=== PATIENT | female | born 1990 | race Two or more races ===

== ENCOUNTER 2019-10-21 12:04 | Emergency (ER) | payer OTHER ==
[2019-10-21 12:27] VITALS: BP 135/89; PULSE 89; TEMP 98.1; BMI 30.9
[2019-10-21] MEDS ORDERED: diazePAM 5 MG TABLET PO ONE (14:23)
[2019-10-21] MEDS ORDERED: KETOROLAC TROMETHAMINE 60 MG/2 ML VIAL IM ONE (14:23)
--- NOTE | 2019-10-21 14:27 | PDOC ---
History of Present Illness - General Chief Complaint: Back Pain Stated Complaint: LOWER BACK PAIN Time Seen by Provider: 10/21/19 13:42 - History of Present Illness Initial Comments: 10/21/19 14:24 29-year-old female without comorbidities presents for evaluation of lower back pain without radicular or systemic symptoms x1 day. Pain started when she went to bend down to put detergent in a bucket. Past History - Past Medical History Allergies/Adverse Reactions: Allergies Allergy/AdvReac Type Severity Reaction Status Date / Time No Known Allergies Allergy Verified 10/21/19 12:26 COPD: No Other medical history: SCOLIOSIS - Psycho Social/Smoking Cessation Hx Smoking History: Never smoked Hx Alcohol Use: No Drug/Substance Use Hx: No Review of Systems - Review of Systems Constitutional: No: Fever : No: Incontinence Musculoskeletal: Yes: Back Pain Neurological: No: Numbness, Paresthesia, Tingling, Weakness *Physical Exam - Vital Signs Last Vital Signs Temp Pulse Resp BP Pulse Ox 98.1 F 89 18 135/89 100 10/21/19 12:24 10/21/19 12:24 10/21/19 12:24 10/21/19 12:24 10/21/19 12:24 - Physical Exam 10/21/19 14:25 Lumbar spine skin color and temperature normal. No tenderness midline mild right and left paralumbar musculature spasm and tenderness. 5 out of 5 strength bilateral lower extremities without gross sensorimotor deficits neurovascular intact. Medical Decision Making - Medical Decision Making 10/21/19 14:25 Lumbar spine strain will treat with Toradol and Valium in the emergency room Flexeril is not working at home. Have patient follow-up with neurosurgery she was seen in another emergency room last night given a prescription for Motrin and Flexeril she has not taken any Motrin today. Discharge - Discharge Information Problems reviewed: Yes Clinical Impression/Diagnosis: Lumbar spine strain Condition: Improved Disposition: HOME - Admission No - Follow up/Referral Referrals: Nusrat Fontenot [Primary Care Provider] - Bill Hankins MD, [facility] [Staff Physician] - - Patient Discharge Instructions Patient Printed Discharge Instructions: DI for Back Strain or Sprain Additional Instructions: Please continue with the Flexeril at home. Do not take anymore Motrin today. You may restart the Motrin in 24 hours you were given an injection of a long- acting anti-inflammatory. You may take Tylenol as directed for pain on top of the medicine you are already taking. Return to the emergency room for worsening symptoms and without fail follow-up with neurosurgery in 2 to 3 days for further evaluation and treatment options. - Post Discharge Activity Work/Back to School Note: Back to Work
[2019-10-21] MEDS ORDERED: KETOROLAC TROMETHAMINE 60 MG/2 ML VIAL ONE (14:30)
[2019-10-21] MEDS ORDERED: diazePAM 5 MG TABLET ONE (14:31)
== END 2019-10-21 15:48 | disposition home or self-care (01) ==
LOC: JERFT 12:04
PROC: 3E0233Z Introduction of Anti-inflammatory into Muscle, Percutaneous Approach (ICD-10-PCS; principal; 2019-10-21)
DX: S39.012A Strain of muscle, fascia and tendon of lower back, initial encounter (principal); X50.1XXA Overexertion from prolonged static or awkward postures, initial encounter; Y93.89 Activity, other specified; Y92.89 Other specified places as the place of occurrence of the external cause; Y99.8 Other external cause status
CPT/HCPCS: 96372; 99282-25